=== PATIENT | male | born 1990 | race Caucasian/White ===

== ENCOUNTER 2020-01-05 19:34 | Inpatient (IN) | payer OTHER ==
[2020-01-05] MEDS ORDERED: NALOXONE 0.4 MG/ML 1 ML VIAL IV STA (19:38)
--- NOTE | 2020-01-05 19:42 | ED ---
General Adult HPI - General Source: patient, police, EMS, RN notes reviewed Mode of arrival: EMS Limitations: altered mental status, physical limitation <Olayinka Robins - Last Filed: 01/05/20 20:43> <Jigar Driver - Last Filed: 01/09/20 23:20> - General Chief complaint: Altered Mental Status Stated complaint: Unresponsive Time Seen by Provider: 01/05/20 19:38 - History of Present Illness Initial comments: Patient is an unresponsive 29-year-old male found it is car with the vehicle running. EMS was unable to provide further information about the patient. They did give Narcan twice without improvement of symptoms. Nasal trumpet was placed and patient did appear to reach for one time. Patient remains unresponsive at this time and unable to provide any information. No reported trauma. (Olayinka Melendez) - Related Data Home Medications Medication Instructions Recorded Confirmed Amitriptyline HCl [Elavil] 50 mg PO HS 01/05/20 01/05/20 Ammonium Lactate Lotion 1 applic TOPICAL BID PRN 01/05/20 01/05/20 [Lac-Hydrin 12% Lotion] Buprenorphine HCl/Naloxone HCl 0.5 film SL Q4H 01/05/20 01/05/20 [Suboxone 8 mg-2 mg Sl Film] Butalb/APAP/Caff 50-325-40Mg 1 tab PO Q12H PRN 01/05/20 01/05/20 [Fioricet 50-325-40] Lisdexamfetamine Dimesylate 40 mg PO DAILY 01/05/20 01/05/20 [Vyvanse] Naproxen [Naprosyn] 250 mg PO Q12H PRN 01/05/20 01/05/20 QUEtiapine [SEROquel] 100 mg PO HS 01/05/20 01/05/20 cloNIDine HCL [Catapres] 0.1 mg PO HS 01/05/20 01/05/20 Allergies Allergy/AdvReac Type Severity Reaction Status Date / Time No Known Allergies Allergy Verified 01/05/20 21:02 Review of Systems ROS Other: All systems not noted in ROS Statement are negative. Limitations: ROS unobtainable due to patients medical condition <Olayinka Robins - Last Filed: 01/05/20 20:43> ROS Other: All systems not noted in ROS Statement are negative. <Jigar Driver - Last Filed: 01/09/20 23:20> ROS Statement: Those systems with pertinent positive or pertinent negative responses have been documented in the HPI. General Exam Limitations: altered mental status, physical limitation General appearance: obtunded Head exam: Present: atraumatic, normocephalic Eye exam: Present: normal appearance, other (Pupils constricted) ENT exam: Present: normal oropharynx, other (Gag reflex not present) Neck exam: Present: normal inspection Respiratory exam: Present: normal lung sounds bilaterally, other (Snoring respirations) Cardiovascular Exam: Present: regular rate, normal rhythm GI/Abdominal exam: Present: soft. Absent: tenderness Extremities exam: Present: other (Track douglass left antecubital fossa) Expanded Neurological exam: Present: total aphasia Eye Response: (1) no response Motor Response: (1) no motor response Verbal Response: (1) no verbal response Psychiatric exam: Present: other (Nonverbal) Skin exam: Present: normal color <Olayinka Robins - Last Filed: 01/05/20 20:43> Course Vital Signs 01/05/20 01/05/20 01/05/20 19:35 19:41 19:45 Temperature 97 F L 97 F L Pulse Rate 82 82 Respiratory 9 L 9 L Rate Blood Pressure 119/82 119/65 114/82 O2 Sat by Pulse 97 97 97 Oximetry 01/05/20 01/05/20 01/05/20 19:50 19:54 19:55 Temperature Pulse Rate 82 Respiratory 12 9 L Rate Blood Pressure 114/82 184/140 O2 Sat by Pulse 97 100 Oximetry 01/05/20 01/05/20 01/05/20 20:00 20:06 20:23 Temperature Pulse Rate 78 85 82 Respiratory 16 12 16 Rate Blood Pressure 184/140 117/81 124/88 O2 Sat by Pulse 99 100 100 Oximetry 01/05/20 01/05/20 01/05/20 20:55 21:04 21:42 Temperature Pulse Rate 89 87 Respiratory 16 16 Rate Blood Pressure 118/82 116/80 109/76 O2 Sat by Pulse 100 100 Oximetry 01/05/20 01/05/20 22:00 22:06 Temperature 98 F Pulse Rate 81 87 Respiratory 16 Rate Blood Pressure 112/84 O2 Sat by Pulse 100 Oximetry EKG Findings - EKG Comments: EKG Findings:: Sinus rhythm at 82. IN 16. QRS 124. QT 420. QTc 490. [place]. Nonspecific intraventricular conduction delay. No acute ST change. <Olayinka Robins - Last Filed: 01/05/20 20:43> Procedures - Intubation Paralytic: Succinylcholine Mg Given: 120 Laryngoscope: Tee Size: 3 ET Tube Size: 8 Tube Secured Depth (cm): 23 Tube Secured Location: lips Tube Placement Confirmation: visualized tube passing through cords, equal breath sounds bilaterally, no breath sounds over epigastrium, confirmation by capnometry Patient Tolerated Procedure: well, no complications Intubation Complications: none <Olayinka Robins - Last Filed: 01/05/20 20:43> Medical Decision Making - Lab Data Result diagrams: 01/05/20 19:44 01/05/20 19:44 - Radiology Data Radiology results: image reviewed (Chest x-ray shows endotracheal tube present. No acute abnormality.) <Olayinka Robins - Last Filed: 01/05/20 20:43> - Lab Data Result diagrams: 01/06/20 04:29 01/06/20 04:29 - Radiology Data Radiology results: report reviewed (CT brain is negativ efor acute disaease), im age reviewed <Jigar Driver - Last Filed: 01/09/20 23:20> - Medical Decision Making 29 male to the ED found unresponsive, CKR, CT brain negative for acute disease, patient to ICU for monitoring and further hemodynamic monitoring and evaluation. (Jigar Driver) - Lab Data Lab Results 01/05/20 01/05/20 01/05/20 Range/Units 19:44 19:44 19:44 WBC 8.2 (3.8-10.6) k/uL RBC 4.66 (4.30-5.90) m/uL Hgb 15.0 (13.0-17.5) gm/dL Hct 43.6 (39.0-53.0) % MCV 93.6 (80.0-100.0) fL MCH 32.2 (25.0-35.0) pg MCHC 34.5 (31.0-37.0) g/dL RDW 12.6 (11.5-15.5) % Plt Count 175 (150-450) k/uL Neutrophils % 66 % Lymphocytes % 22 % Monocytes % 6 % Eosinophils % 5 % Basophils % 0 % Neutrophils # 5.4 (1.3-7.7) k/uL Lymphocytes # 1.8 (1.0-4.8) k/uL Monocytes # 0.5 (0-1.0) k/uL Eosinophils # 0.4 (0-0.7) k/uL Basophils # 0.0 (0-0.2) k/uL PT 12.1 H (9.0-12.0) sec INR 1.2 H (<1.2) APTT 27.5 (22.0-30.0) sec Sample Site ABG pH (7.35-7.45) ABG pCO2 (35-45) mmHg ABG pO2 (83-108) mmHg ABG HCO3 (21-25) mmol/L ABG Total CO2 (19-24) mmol/L ABG O2 Saturation (94-97) % ABG Base Excess mmol/L Sunny Test Carbon Monoxide, Quant (<10.0) % FiO2 % Sodium (137-145) mmol/L Potassium (3.5-5.1) mmol/L Chloride (98-107) mmol/L Carbon Dioxide (22-30) mmol/L Anion Gap mmol/L BUN (9-20) mg/dL Creatinine (0.66-1.25) mg/dL Est GFR (CKD-EPI)AfAm (>60 ml/min/1.73 sqM) Est GFR (CKD-EPI)NonAf (>60 ml/min/1.73 sqM) Glucose (74-99) mg/dL POC Glucose (mg/dL) (75-99) mg/dL POC Glu Drop Pit Worker ID Calcium (8.4-10.2) mg/dL Total Bilirubin (0.2-1.3) mg/dL AST (17-59) U/L ALT (4-49) U/L Alkaline Phosphatase (38-126) U/L Creatine Kinase (55-170) U/L Troponin I (0.000-0.034) ng/mL Total Protein (6.3-8.2) g/dL Albumin (3.5-5.0) g/dL Urine Color Yellow Urine Appearance Clear (Clear) Urine pH 6.5 (5.0-8.0) Ur Specific [place] 1.039 H (1.001-1.035) Urine Protein 1+ H (Negative) Urine Glucose (UA) Negative (Negative) Urine Ketones Trace H (Negative) Urine Blood Negative (Negative) Urine Nitrite Negative (Negative) Urine Bilirubin Negative (Negative) Urine Urobilinogen 3.0 (<2.0) mg/dL Ur Leukocyte Esterase Negative (Negative) Urine RBC 2 (0-5) /hpf Urine WBC 1 (0-5) /hpf Ur Squamous Epith Cells <1 (0-4) /hpf Urine Bacteria Rare H (None) /hpf Urine Mucus Many H (None) /hpf Urine Sperm Rare (None) /hpf Salicylates mg/dL Urine Opiates Screen Not Detected (NotDetected) Ur Oxycodone Screen Not Detected (NotDetected) Urine Methadone Screen Not Detected (NotDetected) Ur Propoxyphene Screen Not Detected (NotDetected) Ur Barbiturates Screen Detected H (NotDetected) U Tricyclic Antidepress Detected H (NotDetected) Ur Phencyclidine Scrn Not Detected (NotDetected) Ur Amphetamines Screen Detected H (NotDetected) U Methamphetamines Scrn Not Detected (NotDetected) U Benzodiazepines Scrn Detected H (NotDetected) Urine Cocaine Screen Detected H (NotDetected) U Marijuana (THC) Screen Detected H (NotDetected) Serum Alcohol mg/dL Acetone, Qual (Negative) 01/05/20 01/05/20 01/05/20 Range/Units 19:44 19:44 19:44 WBC (3.8-10.6) k/uL RBC (4.30-5.90) m/uL Hgb (13.0-17.5) gm/dL Hct (39.0-53.0) % MCV (80.0-100.0) fL MCH (25.0-35.0) pg MCHC (31.0-37.0) g/dL RDW (11.5-15.5) % Plt Count (150-450) k/uL Neutrophils % % Lymphocytes % % Monocytes % % Eosinophils % % Basophils % % Neutrophils # (1.3-7.7) k/uL Lymphocytes # (1.0-4.8) k/uL Monocytes # (0-1.0) k/uL Eosinophils # (0-0.7) k/uL Basophils # (0-0.2) k/uL PT (9.0-12.0) sec INR (<1.2) APTT (22.0-30.0) sec Sample Site ABG pH (7.35-7.45) ABG pCO2 (35-45) mmHg ABG pO2 (83-108) mmHg ABG HCO3 (21-25) mmol/L ABG Total CO2 (19-24) mmol/L ABG O2 Saturation (94-97) % ABG Base Excess mmol/L Sunny Test Carbon Monoxide, Quant 6.3 (<10.0) % FiO2 % Sodium 140 (137-145) mmol/L Potassium 3.2 L (3.5-5.1) mmol/L Chloride 108 H (98-107) mmol/L Carbon Dioxide 25 (22-30) mmol/L Anion Gap 7 mmol/L BUN 11 (9-20) mg/dL Creatinine 0.66 (0.66-1.25) mg/dL Est GFR (CKD-EPI)AfAm >90 (>60 ml/min/1.73 sqM) Est GFR (CKD-EPI)NonAf >90 (>60 ml/min/1.73 sqM) Glucose 96 (74-99) mg/dL POC Glucose (mg/dL) (75-99) mg/dL POC Glu Drop Pit Worker ID Calcium 9.1 (8.4-10.2) mg/dL Total Bilirubin 0.5 (0.2-1.3) mg/dL AST 23 (17-59) U/L ALT 20 (4-49) U/L Alkaline Phosphatase 63 (38-126) U/L Creatine Kinase 133 (55-170) U/L Troponin I <0.012 (0.000-0.034) ng/mL Total Protein 6.4 (6.3-8.2) g/dL Albumin 4.1 (3.5-5.0) g/dL Urine Color Urine Appearance (Clear) Urine pH (5.0-8.0) Ur Specific [place] (1.001-1.035) Urine Protein (Negative) Urine Glucose (UA) (Negative) Urine Ketones (Negative) Urine Blood (Negative) Urine Nitrite (Negative) Urine Bilirubin (Negative) Urine Urobilinogen (<2.0) mg/dL Ur Leukocyte Esterase (Negative) Urine RBC (0-5) /hpf Urine WBC (0-5) /hpf Ur Squamous Epith Cells (0-4) /hpf Urine Bacteria (None) /hpf Urine Mucus (None) /hpf Urine Sperm (None) /hpf Salicylates <1.0 mg/dL Urine Opiates Screen (NotDetected) Ur Oxycodone Screen (NotDetected) Urine Methadone Screen (NotDetected) Ur Propoxyphene Screen (NotDetected) Ur Barbiturates Screen (NotDetected) U Tricyclic Antidepress (NotDetected) Ur Phencyclidine Scrn (NotDetected) Ur Amphetamines Screen (NotDetected) U Methamphetamines Scrn (NotDetected) U Benzodiazepines Scrn (NotDetected) Urine Cocaine Screen (NotDetected) U Marijuana (THC) Screen (NotDetected) Serum Alcohol <10 mg/dL Acetone, Qual Negative (Negative) 01/05/20 01/05/20 Range/Units 19:45 20:28 WBC (3.8-10.6) k/uL RBC (4.30-5.90) m/uL Hgb (13.0-17.5) gm/dL Hct (39.0-53.0) % MCV (80.0-100.0) fL MCH (25.0-35.0) pg MCHC (31.0-37.0) g/dL RDW (11.5-15.5) % Plt Count (150-450) k/uL Neutrophils % % Lymphocytes % % Monocytes % % Eosinophils % % Basophils % % Neutrophils # (1.3-7.7) k/uL Lymphocytes # (1.0-4.8) k/uL Monocytes # (0-1.0) k/uL Eosinophils # (0-0.7) k/uL Basophils # (0-0.2) k/uL PT (9.0-12.0) sec INR (<1.2) APTT (22.0-30.0) sec Sample Site r rad ABG pH 7.35 (7.35-7.45) ABG pCO2 47 H (35-45) mmHg ABG pO2 368 H (83-108) mmHg ABG HCO3 26 H (21-25) mmol/L ABG Total CO2 27 H (19-24) mmol/L ABG O2 Saturation 99.8 H (94-97) % ABG Base Excess 0.3 mmol/L Sunny Test Yes Carbon Monoxide, Quant (<10.0) % FiO2 100 % Sodium (137-145) mmol/L Potassium (3.5-5.1) mmol/L Chloride (98-107) mmol/L Carbon Dioxide (22-30) mmol/L Anion Gap mmol/L BUN (9-20) mg/dL Creatinine (0.66-1.25) mg/dL Est GFR (CKD-EPI)AfAm (>60 ml/min/1.73 sqM) Est GFR (CKD-EPI)NonAf (>60 ml/min/1.73 sqM) Glucose (74-99) mg/dL POC Glucose (mg/dL) 108 H (75-99) mg/dL POC Glu Drop Pit Worker ID De La Paz, Camryn Calcium (8.4-10.2) mg/dL Total Bilirubin (0.2-1.3) mg/dL AST (17-59) U/L ALT (4-49) U/L Alkaline Phosphatase (38-126) U/L Creatine Kinase (55-170) U/L Troponin I (0.000-0.034) ng/mL Total Protein (6.3-8.2) g/dL Albumin (3.5-5.0) g/dL Urine Color Urine Appearance (Clear) Urine pH (5.0-8.0) Ur Specific [place] (1.001-1.035) Urine Protein (Negative) Urine Glucose (UA) (Negative) Urine Ketones (Negative) Urine Blood (Negative) Urine Nitrite (Negative) Urine Bilirubin (Negative) Urine Urobilinogen (<2.0) mg/dL Ur Leukocyte Esterase (Negative) Urine RBC (0-5) /hpf Urine WBC (0-5) /hpf Ur Squamous Epith Cells (0-4) /hpf Urine Bacteria (None) /hpf Urine Mucus (None) /hpf Urine Sperm (None) /hpf Salicylates mg/dL Urine Opiates Screen (NotDetected) Ur Oxycodone Screen (NotDetected) Urine Methadone Screen (NotDetected) Ur Propoxyphene Screen (NotDetected) Ur Barbiturates Screen (NotDetected) U Tricyclic Antidepress (NotDetected) Ur Phencyclidine Scrn (NotDetected) Ur Amphetamines Screen (NotDetected) U Methamphetamines Scrn (NotDetected) U Benzodiazepines Scrn (NotDetected) Urine Cocaine Screen (NotDetected) U Marijuana (THC) Screen (NotDetected) Serum Alcohol mg/dL Acetone, Qual (Negative) Critical Care Time Critical Care Time: Yes Total Critical Care Time: 33 <Olayinka Robins - Last Filed: 01/05/20 20:43> Disposition <Olayinka Robins - Last Filed: 01/05/20 20:43> Is patient prescribed a controlled substance at d/c from ED?: No <Jigar Driver - Last Filed: 01/09/20 23:20> Clinical Impression: Altered mental status, Drug overdose, Acute respiratory failure Disposition: ADMITTED IP TO THIS [facility] Condition: Serious
[2020-01-05] MEDS ORDERED: SUCCINYLCHOLINE CHLORIDE VIAL 200 MG/10 ML VIAL IV STA (19:43)
[2020-01-05] MEDS ORDERED: LORazepam 2 MG/ML INJ IV PRN ×2 (19:47)
[2020-01-05 19:48] LABS: Glucose,Whole Blood 108 mg/dL (75-99)
[2020-01-05 19:51] LABS: Basophils % (A) 0 %; Eosinophils # (A) 0.4 k/uL (0-0.7); Eosinophils % (A) 5 %; HCT 43.6 % (39.0-53.0); Lymphocytes # (A) 1.8 k/uL (1.0-4.8); Lymphocytes % (A) 22 %; MCH 32.2 pg (25.0-35.0); MCHC 34.5 g/dL (31.0-37.0); MCV 93.6 fL (80.0-100.0); Mean Platelet Volume 7.8; Monocytes # (A) 0.5 k/uL (0-1.0); Monocytes % (A) 6 %; Neutrophils # (A) 5.4 k/uL (1.3-7.7); Neutrophils % (A) 66 %; Platelet Count 175 k/uL (150-450); RBC 4.66 m/uL (4.30-5.90); RDW 12.6 % (11.5-15.5); WBC 8.2 k/uL (3.8-10.6)
[2020-01-05 20:00] LABS: INR 1.2 (<1.2); Partial Thromboplastin Time 27.5 sec (22.0-30.0); Prothrombin Time 12.1 sec (9.0-12.0)
[2020-01-05 20:03] LABS: ALT 20 U/L (4-49); AST 23 U/L (17-59); African American GFR (CKD) >90 (>60 ml/min/1.73 sqM); Albumin 4.1 g/dL (3.5-5.0); Alcohol <10 mg/dL; Alkaline Phosphatase 63 U/L (38-126); Anion Gap 7 mmol/L; Blood Urea Nitrogen 11 mg/dL (9-20); Calcium 9.1 mg/dL (8.4-10.2); Carbon Dioxide 25 mmol/L (22-30); Chloride 108 mmol/L (98-107); Creatine Kinase 133 U/L (55-170); Glucose 96 mg/dL (74-99); Non-African American GFR(CKD) >90 (>60 ml/min/1.73 sqM); Potassium 3.2 mmol/L (3.5-5.1); Salicylate <1.0 mg/dL; Sodium 140 mmol/L (137-145); Total Bilirubin 0.5 mg/dL (0.2-1.3); Total Protein 6.4 g/dL (6.3-8.2)
[2020-01-05] MEDS: PROPOFOL 1,000 MG in EMPTY BAG 1 BAG IV SCH ×2 (20:06→23:00)
[2020-01-05 20:32] LABS: ABG Base Excess 0.3 mmol/L; ABG HCO3 26 mmol/L (21-25); ABG Oxygen Saturation 99.8 % (94-97); ABG PCO2 47 mmHg (35-45); ABG PH 7.35 (7.35-7.45); ABG PO2 368 mmHg (83-108); ABG TCO2 27 mmol/L (19-24); Allen Test Performed? Yes
--- NOTE | 2020-01-05 20:35 | XR ---
EXAMINATION TYPE: XR chest 1V portable DATE OF EXAM: 01/05/2020 COMPARISON: Prior chest x-ray is unavailable HISTORY: Intubated TECHNIQUE: Single frontal view of the chest is obtained. FINDINGS: Endotracheal tube is overlying the tracheal air column, there is an NG tube in place with the distal tip not included on exam. Patient is rotated, heart size is prominent. No evident pneumoth orax or pleural effusion. Lung volumes are low, central vascularity and interstitium somewhat promine nt. IMPRESSION: Expiratory rotated exam. Follow-up as indicated.
[2020-01-05] MEDS ORDERED: POTASSIUM CHLORIDE 20 MEQ in WATER FOR INJECTION 1 100ML.BAG IVPB STA (20:54)
[2020-01-05] MEDS ORDERED: NALOXONE 0.4 MG/ML 1 ML VIAL IV PRN ×2 (21:02→21:06)
--- NOTE | 2020-01-05 21:03 | CT ---
EXAMINATION TYPE: CT brain wo con DATE OF EXAM: 01/05/2020 COMPARISON: None HISTORY: UNRESPONSIVE CT DLP: 1188.4 mGycm. Automated Exposure Control for Dose Reduction was Utilized. TECHNIQUE: CT scan of the head is performed without contrast. FINDINGS: There is no acute intracranial hemorrhage, mass effect, or midline shift identified. The ventricles and sulci are within normal limits in size. The globes are intact and the visualized sin uses are are markable for inflammatory change in the ethmoid air cells. IMPRESSION: No acute intracranial hemorrhage, mass effect, or midline shift is seen.
[2020-01-05] MEDS ORDERED: IPRATROPIUM-ALBUTEROL 3 ML NEB INHALATION PRN (21:06)
[2020-01-05 21:16] LABS: Appearance,Urine Clear (Clear); Bacteria,Urine Rare /hpf; Bilirubin,Urine Negative (Negative); Blood,Urine Negative (Negative); Color,Urine Yellow; Glucose,Urine (UA) Negative (Negative); Ketones,Urine Trace (Negative); Leukocyte Esterase,Urine Negative (Negative); Mucus,Urine Many /hpf; Nitrite,Urine Negative (Negative); PH, Urine 6.5 (5.0-8.0); Protein,Urine 1+ (Negative); RBC,Urine 2 /hpf (0-5); Specific Gravity,Urine 1.039 (1.001-1.035); Sperm,Urine Rare /hpf; Squamous Epithelial Cell,Urine <1 /hpf (0-4); WBC,Urine 1 /hpf (0-5)
[2020-01-05 21:23] LABS: Amphetamine Screen,Urine Detected (NotDetected); Barbiturate Screen,Urine Detected (NotDetected); Benzodiazepines Screen,Urine Detected (NotDetected); Cocaine Screen,Urine Detected (NotDetected); Methadone Screen, Urine Not Detected (NotDetected); Opiate Screen,Urine Not Detected (NotDetected); Oxycodone Screen, Urine Not Detected (NotDetected); Phencyclidine Screen,Urine Not Detected (NotDetected); Tricyclic Antidepressant,Urine Detected (NotDetected); Urn Cannabinoid Scrn Detected (NotDetected)
[2020-01-05 22:35] LABS: Glucose,Whole Blood 109 mg/dL (75-99)
[2020-01-05] MEDS: CHLORHEXIDINE GLUCONATE 15 ML CUP MUCOUS MEM SCH (23:03)
[2020-01-05 23:46] LABS: Acetaminophen <10.0 ug/mL; Potassium 3.9 mmol/L (3.5-5.1); Salicylate <1.0 mg/dL
[2020-01-06] MEDS: PROPOFOL 1,000 MG in EMPTY BAG 1 BAG IV SCH ×3 (02:25→09:10)
[2020-01-06 04:39] LABS: Basophils # (A) 0.1 k/uL (0-0.2); Basophils % (A) 1 %; Eosinophils # (A) 0.4 k/uL (0-0.7); Eosinophils % (A) 6 %; HCT 43.4 % (39.0-53.0); HGB 14.7 gm/dL (13.0-17.5); Lymphocytes % (A) 30 %; MCH 31.4 pg (25.0-35.0); MCV 92.5 fL (80.0-100.0); Mean Platelet Volume 7.6; Monocytes # (A) 0.5 k/uL (0-1.0); Monocytes % (A) 7 %; Neutrophils # (A) 3.6 k/uL (1.3-7.7); Neutrophils % (A) 54 %; Platelet Count 195 k/uL (150-450); RBC 4.69 m/uL (4.30-5.90); RDW 12.7 % (11.5-15.5); WBC 6.7 k/uL (3.8-10.6)
[2020-01-06 04:52] LABS: ALT 19 U/L (4-49); AST 21 U/L (17-59); African American GFR (CKD) >90 (>60 ml/min/1.73 sqM); Albumin 3.8 g/dL (3.5-5.0); Alkaline Phosphatase 71 U/L (38-126); Anion Gap 6 mmol/L; Blood Urea Nitrogen 11 mg/dL (9-20); Calcium 9.1 mg/dL (8.4-10.2); Carbon Dioxide 26 mmol/L (22-30); Chloride 107 mmol/L (98-107); Glucose 100 mg/dL (74-99); Magnesium 2.1 mg/dL (1.6-2.3); Non-African American GFR(CKD) >90 (>60 ml/min/1.73 sqM); Phosphorus 3.4 mg/dL (2.5-4.5); Potassium 3.6 mmol/L (3.5-5.1); Sodium 139 mmol/L (137-145); Total Bilirubin 0.6 mg/dL (0.2-1.3); Total Protein 6.1 g/dL (6.3-8.2)
[2020-01-06 05:17] LABS: ABG Base Excess 2.8 mmol/L; ABG HCO3 27 mmol/L (21-25); ABG Oxygen Saturation 98.1 % (94-97); ABG PCO2 43 mmHg (35-45); ABG PH 7.41 (7.35-7.45); ABG PO2 96 mmHg (83-108); ABG TCO2 29 mmol/L (19-24); Allen Test Performed? Yes
[2020-01-06] MEDS ORDERED: Potassium Replacement Protocol 1 EACH MISC MISCELLANE PRN (05:45)
[2020-01-06] MEDS: POTASSIUM CHLORIDE 10 MEQ in WATER FOR INJECTION 1 100ML.BAG IVPB SCH ×2 (06:16→09:40)
--- NOTE | 2020-01-06 07:25 | XR ---
EXAMINATION TYPE: XR chest 1V portable DATE OF EXAM: 01/06/2020 COMPARISON: 01/05/2020 HISTORY: SOB, Follow Up FINDINGS: Indwelling tubes and catheters are unchanged. Focal infiltrate or pneumothorax. Stable appearance of the cardio-mediastinal structures at this time. No pleural effusion identified. IMPRESSION: 1. Stable portable chest. Clinical correlation and follow up until resolution is recommended.
[2020-01-06 08:11] VITALS: TEMP 97.8
[2020-01-06] MEDS ORDERED: PANTOPRAZOLE 40 MG/10 ML VIAL IV SCH (09:00)
[2020-01-06] MEDS ORDERED: HEPARIN SODIUM,PORCINE 5,000 UNIT/ML 1 ML VIAL SQ SCH (09:00)
[2020-01-06] MEDS: CHLORHEXIDINE GLUCONATE 15 ML CUP MUCOUS MEM SCH (09:40)
--- NOTE | 2020-01-06 11:27 | P.CNPUL ---
History of Present Illness Consult date: 01/06/20 Chief complaint: POLY substance abuse History of present illness: This 29-year-old male patient was found in his car with a vehicle running. [place] ice got to the scene. EMS was called as the patient was found to be unresponsive. He was given Narcan with limited response and following that the patient was transferred to the hospital where he was intubated and placed on a mechanical ventilator for airway protection. The patient was acting unusual according to his father who saw him few hours prior to that. The father however does not know much about his son and does not know a lot about his habits and patterns and medical issues. In summary, the patient was intubated and placed on a mechanical ventilator and following that he was transferred to the intensive care unit. He required sedation for increased agitation. His urine drug screen was positive for benzodiazepines, cocaine, marijuana, tricyclics, barbiturates and amphetamines. Overnight, the patient was kept on propofol at 50 g per KG per minute. Urine output is normal to 50 mL an hour. The patient received normal saline today to 75 mL an hour. Currently is on a mechanical ventilator within assist-control mode rate of 16 with a tidal volume of 500 and FiO2 of 40% with a PEEP of 5. His pH is at 7.41 with a pCO2 of 43 and pO2 of 96. The EKG showing no acute abnormalities. No neck stiffness. No seizure activity has been noted. No body jerks. No aspiration. Chest x-ray is within normal limits and ET tube is in a good location. The cardiac enzymes are neg ative. The rest of the blood work is all within normal limits. Earlier this morning, the patient was given a sedation holiday. He woke up appropriately. He was getting progressively more restless and was biting into. Nevertheless, he was moving all 4 extremities and he was following commands and seemed to be appropriate and alert. Based on that, he was given a refill of his breathing trial and following that the patient was extubated. Review of Systems ROS unobtainable: due to endotracheal tube Past Medical History Additional Past Medical History / Comment(s): Father unaware of pt medical history History of Any Multi-Drug Resistant Organisms: None Reported Past Surgical History: No Surgical Hx Reported Past Anesthesia/Blood Transfusion Reactions: No Reported Reaction Smoking Status: Current every day smoker Medications and Allergies Home Medications Medication Instructions Recorded Confirmed Type Amitriptyline HCl [Elavil] 50 mg PO HS 01/05/20 01/05/20 History Ammonium Lactate Lotion 1 applic TOPICAL BID PRN 01/05/20 01/05/20 History [Lac-Hydrin 12% Lotion] Buprenorphine HCl/Naloxone HCl 0.5 film SL Q4H 01/05/20 01/05/20 History [Suboxone 8 mg-2 mg Sl Film] Butalb/APAP/Caff 50-325-40Mg 1 tab PO Q12H PRN 01/05/20 01/05/20 History [Fioricet 50-325-40] Lisdexamfetamine Dimesylate 40 mg PO DAILY 01/05/20 01/05/20 History [Vyvanse] Naproxen [Naprosyn] 250 mg PO Q12H PRN 01/05/20 01/05/20 History QUEtiapine [SEROquel] 100 mg PO HS 01/05/20 01/05/20 History cloNIDine HCL [Catapres] 0.1 mg PO HS 01/05/20 01/05/20 History Allergies Allergy/AdvReac Type Severity Reaction Status Date / Time No Known Allergies Allergy Verified 01/05/20 21:02 Physical Exam Vitals: Vital Signs Temp Pulse Pulse Resp BP BP Pulse Ox 01/06/20 07:00 84 16 108/78 98 01/06/20 06:30 82 16 121/90 98 01/06/20 06:00 79 16 111/84 100 01/06/20 05:30 84 16 107/97 99 01/06/20 05:00 82 16 119/79 99 01/06/20 04:30 83 16 103/77 98 01/06/20 04:00 97.5 F L 82 16 104/78 99 01/06/20 03:30 84 16 121/81 98 01/06/20 03:00 81 16 121/81 99 01/06/20 02:30 85 16 98 01/06/20 02:00 84 16 101/77 98 01/06/20 01:31 82 16 99 01/06/20 01:00 85 16 101/77 98 01/06/20 00:00 83 16 111/77 96 01/05/20 23:00 97.6 F 84 16 108/78 98 01/05/20 22:06 98 F 87 16 112/84 100 01/05/20 22:00 81 01/05/20 21:42 109/76 01/05/20 21:04 87 16 116/80 100 01/05/20 20:55 89 16 118/82 100 01/05/20 20:23 82 16 124/88 100 01/05/20 20:06 85 12 117/81 100 01/05/20 20:00 78 16 184/140 99 01/05/20 19:55 9 L 01/05/20 19:54 82 12 184/140 100 01/05/20 19:50 114/82 97 01/05/20 19:45 114/82 97 01/05/20 19:41 97 F L 82 9 L 119/65 97 01/05/20 19:35 97 F L 82 9 L 119/82 97 Intake and Output 01/05/20 01/06/20 01/06/20 22:59 06:59 14:59 Intake Total 43.544 573.130 100 Output Total 430 50 Balance 43.544 143.130 50 Intake: IV 375 100 0.9 375 Potassium Chloride 10 meq 100 In Water For Injection 1 100ml.bag @ 100 mls/hr IVPB Q1H YOSELIN Rx#: [id number] Intake, IV Titration 43.544 198.130 Amount Propofol 1,000 mg In 43.544 198.130 Empty Bag 1 bag @ Titrate IV .Q0M [facility] Rx#: [id number] Output: Urine 430 50 Other: Voiding Method Indwelling Catheter Weight 90.718 kg 98 kg The patient appeared well nourished and normally developed. Vital signs as do cumented. He was intubated and the patient subsequently the patient was extubated to nasal cannula after having a sedation holiday and breathing spontaneously breathing trial. Head exam is unremarkable. No scleral icterus or corneal arcus noted. Neck is without jugular venous distension, thyromegaly, or carotid bruits. Carotid upstrokes are brisk bilaterally. Lungs are clear to auscultation and percussion. Cardiac exam reveals the PMI to be normally sized and situated. Rhythm is regular. First and second heart sounds normal. No murmurs, rubs or gallops. Abdominal exam reveals normal bowel sounds, no masses, no organomegaly and no aortic enlargement. Extremities are nonedematous and both femoral and pedal pulses are normal.Examination of the skin revealed no evidence of significant rashes, suspicious appearing nevi or other concerning lesions. Neurologically the patient is still arousing from sedation. He a is moving all 4 extremities. No neck stiffness. Pupils are equal and reactive to light. No nystagmus. No clonus. No Babinski. Results - Laboratory Findings CBC and BMP: 01/06/20 04:29 01/06/20 04:29 ABG ABG pH 7.41 (7.35-7.45) 01/06/20 05:17 ABG pCO2 43 mmHg (35-45) 01/06/20 05:17 ABG pO2 96 mmHg (83-108) 01/06/20 05:17 ABG O2 Saturation 98.1 % (94-97) H 01/06/20 05:17 PT/INR, D-dimer PT 12.1 sec (9.0-12.0) H 01/05/20 19:44 INR 1.2 (<1.2) H 01/05/20 19:44 Abnormal lab findings: Abnormal Labs 01/05/20 01/05/20 01/05/20 19:44 19:44 19:44 PT 12.1 H INR 1.2 H ABG pCO2 ABG pO2 ABG HCO3 ABG Total CO2 ABG O2 Saturation Potassium 3.2 L Chloride 108 H Creatinine Glucose POC Glucose (mg/dL) Total Protein Ur Specific [place] 1.039 H Urine Protein 1+ H Urine Ketones Trace H Urine Bacteria Rare H Urine Mucus Many H Ur Barbiturates Screen Detected H U Tricyclic Antidepress Detected H Ur Amphetamines Screen Detected H U Benzodiazepines Scrn Detected H Urine Cocaine Screen Detected H U Marijuana (THC) Screen Detected H 01/05/20 01/05/20 01/05/20 19:45 20:28 22:32 PT INR ABG pCO2 47 H ABG pO2 368 H ABG HCO3 26 H ABG Total CO2 27 H ABG O2 Saturation 99.8 H Potassium Chloride Creatinine Glucose POC Glucose (mg/dL) 108 H 109 H Total Protein Ur Specific [place] Urine Protein Urine Ketones Urine Bacteria Urine Mucus Ur Barbiturates Screen U Tricyclic Antidepress Ur Amphetamines Screen U Benzodiazepines Scrn Urine Cocaine Screen U Marijuana (THC) Screen 01/06/20 01/06/20 04:29 05:17 PT INR ABG pCO2 ABG pO2 ABG HCO3 27 H ABG Total CO2 29 H ABG O2 Saturation 98.1 H Potassium Chloride Creatinine 0.60 L Glucose 100 H POC Glucose (mg/dL) Total Protein 6.1 L Ur Specific [place] Urine Protein Urine Ketones Urine Bacteria Urine Mucus Ur Barbiturates Screen U Tricyclic Antidepress Ur Amphetamines Screen U Benzodiazepines Scrn Urine Cocaine Screen U Marijuana (THC) Screen - Diagnostic Findings Chest x-ray: image reviewed Assessment and Plan Plan: 1 altered mental status secondary to polysubstance abuse 2 acute respiratory failure, the patient was not hypoxic. Unsure if the patient was hypercapnic. The patient was intubated for airway protection as the patient was felt that he was unable to protect his airway in the emergency department. As such she was intubated and placed on a mechanical ventilator overnight. 3 suspect psychiatric history as the patient seems to be on a combination of medication including Seroquel on outpatient basis. The patient will need a psych evaluation. 4 suspect opiate dependence as the patient is also backs on outpatient basis 5 suspect depression as the patient is on Elavil on outpatient basis. Plan Patient is extubated Provide diet Psychiatric evaluation IV fluids We'll continue to follow. We'll try to gather some more information regarding his current presentation
[2020-01-06 13:23] VITALS: BP 123/83; PULSE 79; RESP 8
--- NOTE | 2020-01-06 13:44 | P.CN ---
Psychiatric Consult - . Consult date: 01/06/20 Consult:: IDENTIFYING DATA: 29-year-old single male admitted to the ICU for management of acute overdose. Apparently the EMS found him in his car with the motor running. He did not respond to administration of 2 doses of Narcan. The asset protection professional consult to psychiatry to evaluate whether the overdose was intentional. HISTORY OF PRESENT ILLNESS: I reviewed the medical record and interviewed the patient. When I initially arrived on the ICU this morning he was intubated and unresponsive. The unit subsequently extubated him. Immediately after extubation he demanded to be discharge. He denied that the overdose was a suicide attempt. I interviewed him and his girlfriend was also at the bedside. He stated that he did not overdose intentionally. He admitted to use of drugs including cocaine, Xanax, Lyrica, Suboxone and Vyvanse. He also talked about receiving prescriptions of butalbital from a provider for intractable headaches he developed after an overdose from heroin. He alleged that he went to visit his father where they were using cocaine. He obtained some Xanax from his father and alleged that he made an error and "took to many doses". He admits that he took Xanax to "get high"; denied that he took as an intent to end his life. He denied history of suicide attempts or gestures. He has had prior overdose when he is using heroin IV. He alleged that he uses heroin intermittently but much less often since she completed a 12 month substance abuse treatment program through [facility] in [place]. He is currently prescribed 24 mg of Suboxone daily for his opiate use disorder. He alleges a history of ADHD for which she is prescribed Vyvanse 70 mg daily. He denied feeling depressed, hopeless or helpless. He denied psychotic symptoms such as auditory, visual or olfactory hallucinations, ideas reference, thought insertion, thought broadcasting or thought control. He admits to using marijuana and benzodiazepines. His UDS was positive for barbiturates, tricyclic antidepressants, amphetamines, benzodiazepines, cocaine and marijuana. His UDS was negative. PAST PSYCHIATRIC HISTORY: He denied psychiatric hospitalizations. He denied a history of psychiatri c treatment. He has met with counselors intermittently since he was an adolescent. PAST MEDICAL HISTORY: He complained chronic headaches which is prescribed Fiorinal. He denied other chronic medical conditions. ALLERGIES: NO KNOWN DRUG ALLERGIES SUBSTANCE USE HISTORY: Wilian has a long history of substance use and substance use problems beginning in adolescence. He began abusing oral point medications and transition to heroin about 8 years ago. He was injecting heroin until he entered the substance abuse treatment program. His history of use of heroin, or opioid pain medications, barbiturates, benzodiazepines, cocaine, methamphetamine, and marijuana. He denied problems with use of alcohol. FAMILY PSYCHIATRIC/SUBSTANCE USE HISTORY: His father history of cocaine use disorder SOCIAL HISTORY: He is single and has one child out of wedlock. 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 MENTAL STATUS EXAM: He presented as a thin and irritable 29-year-old male who was resting company in bed. He made eye contact and attended the interview. He had no distinguishing features or prominent physical abnormalities. He has a impatient facial expression. He was alert and oriented to person, place and time. He showed no abnormality of psychomotor activity. Her speech was spontaneous and consistent with his mood. His affect was dysphoric with a mixture of anxiety and irritability. He denied suicidal ideation and wishes. He denied homicidal ideation. He denied feeling hopeless, helpless or worthless. He did not express ideas reference, paranoid ideation or delusions. His thinking was concrete but his associations were coherent, logical and goal directed. He denied hallucinations and did not appear to be responding to internal stimuli. IMPRESSIONS: 29-year-old single male with long history of substance use and substance use problems. He presented to [facility] unresponsive following an unintentional overdose of multiple drugs including cocaine, benzodiazepines, marijuana and opiates. He denied that the overdose was unintentional and denied suicidal ideation, intent or plan. He denied feeling depressed or having thoughts of or suicide. He denied history of suicide attempts or gestures. There is no indication for inpatient psychiatric treatment at this time. DIAGNOSIS: A benzodiazepine overdose, cocaine use disorder severe, opiate use disorder severe, benzodiazepine use disorder severe, barbiturate use disorder, cannabis use disorder RECOMMENDATION: Discontinue one-to-one. There is no indication for transfer to psychiatric unit. Refer for outpatient substance abuse treatment. Psychiatrist will sign off on the case. Thank you for the consult. 01/06/20 13:29 01/06/20 13:44
--- NOTE | 2020-01-06 22:55 | P.HPIM ---
History of Present Illness H&P Date: 01/06/20 Chief Complaint: Acute drug overdose. Patient is a 29-year-old male with a known history of polysubstance abuse, anxiety depression and bipolar disorder Was found in his car with vehicle running. Police on him at the scene. EMS was called and patient was found to be unresponsive. He was given Narcan at the scene and was transferred to ER. Patient was placed on mechanical ventilator for airway protection while in the ER. Initial history was taken from his father but he does not know much about his medical history. Patient apparently has some psychiatric illness and is medications. Patient otherwise denied any recent illnesses. No fever no chills. No nausea vomiting abdominal pain or diarrhea. UDS is positive for Positive for barbiturates, tricyclic antidepressants, amphetamines, benzodiazepines, cocaine and marijuana. Laboratory data showed WBC 8.2, hemoglobin 15.0, platelets 175 INR 1.2 Sodium 140, potassium 3.1 chloride 108 Liver enzymes are not elevated Troponin x1- UA negative for infection Chest x-ray showed stable findings. CT head showed no acute intracranial process. EKG showed normal sinus rhythm. Review of Systems Constitutional: Patient denies any fever or chills . No generalized weakness or weight loss. Abdomen: Patient denied nausea vomiting and diarrhea and abdominal pain. Cardiovascular: Patient denies any chest pain or short of breath no palpitations. Respiratory: patient denied any cough is from production. No shortness of breath Neurologic: Patient denied any numbness or tingling headache. Complete review of systems could not be obtained from the patient. Past Medical History Additional Past Medical History / Comment(s): Father unaware of pt medical history History of Any Multi-Drug Resistant Organisms: None Reported Past Surgical History: No Surgical Hx Reported Past Anesthesia/Blood Transfusion Reactions: No Reported Reaction Smoking Status: Current every day smoker Medications and Allergies Home Medications Medication Instructions Recorded Confirmed Type Amitriptyline HCl [Elavil] 50 mg PO HS 01/05/20 01/05/20 History Ammonium Lactate Lotion 1 applic TOPICAL BID PRN 01/05/20 01/05/20 History [Lac-Hydrin 12% Lotion] Buprenorphine HCl/Naloxone HCl 0.5 film SL Q4H 01/05/20 01/05/20 History [Suboxone 8 mg-2 mg Sl Film] Butalb/APAP/Caff 50-325-40Mg 1 tab PO Q12H PRN 01/05/20 01/05/20 History [Fioricet 50-325-40] Lisdexamfetamine Dimesylate 40 mg PO DAILY 01/05/20 01/05/20 History [Vyvanse] Naproxen [Naprosyn] 250 mg PO Q12H PRN 01/05/20 01/05/20 History QUEtiapine [SEROquel] 100 mg PO HS 01/05/20 01/05/20 History cloNIDine HCL [Catapres] 0.1 mg PO HS 01/05/20 01/05/20 History Allergies Allergy/AdvReac Type Severity Reaction Status Date / Time No Known Allergies Allergy Verified 01/05/20 21:02 Physical Exam Vitals: Vital Signs Temp Pulse Pulse Resp BP BP Pulse Ox 01/06/20 10:00 82 16 104/76 98 01/06/20 09:30 80 16 108/86 98 01/06/20 09:00 85 16 112/88 98 01/06/20 08:30 84 16 119/94 98 01/06/20 08:00 97.8 F 83 16 119/91 98 01/06/20 07:30 85 16 113/91 99 01/06/20 07:00 84 16 108/78 98 01/06/20 06:30 82 16 121/90 98 01/06/20 06:00 79 16 111/84 100 01/06/20 05:30 84 16 107/97 99 01/06/20 05:00 82 16 119/79 99 01/06/20 04:30 83 16 103/77 98 01/06/20 04:00 97.5 F L 82 16 104/78 99 01/06/20 03:30 84 16 121/81 98 01/06/20 03:00 81 16 121/81 99 01/06/20 02:30 85 16 98 01/06/20 02:00 84 16 101/77 98 01/06/20 01:31 82 16 99 01/06/20 01:00 85 16 101/77 98 01/06/20 00:00 83 16 111/77 96 01/05/20 23:00 97.6 F 84 16 108/78 98 01/05/20 22:06 98 F 87 16 112/84 100 01/05/20 22:00 81 01/05/20 21:42 109/76 01/05/20 21:04 87 16 116/80 100 01/05/20 20:55 89 16 118/82 100 01/05/20 20:23 82 16 124/88 100 01/05/20 20:06 85 12 117/81 100 01/05/20 20:00 78 16 184/140 99 01/05/20 19:55 9 L 01/05/20 19:54 82 12 184/140 100 01/05/20 19:50 114/82 97 01/05/20 19:45 114/82 97 01/05/20 19:41 97 F L 82 9 L 119/65 97 01/05/20 19:35 97 F L 82 9 L 119/82 97 Intake and Output 01/05/20 01/06/20 01/06/20 22:59 06:59 14:59 Intake Total 43.544 573.130 424.323 Output Total 430 190 Balance 43.544 143.130 234.323 Intake: IV 375 325 0.9 375 225 Potassium Chloride 10 meq 100 In Water For Injection 1 100ml.bag @ 100 mls/hr IVPB Q1H YOSELIN Rx#: [id number] Intake, IV Titration 43.544 198.130 99.323 Amount Propofol 1,000 mg In 43.544 198.130 99.323 Empty Bag 1 bag @ Titrate IV .Q0M YOSELIN Rx#: [id number] Output: Urine 430 190 Other: Voiding Method Indwelling Catheter Indwelling Catheter Weight 90.718 kg 98 kg PHYSICAL EXAMINATION: Patient is lying in the bed comfortably, no acute distress, awake alert and oriented.. HEENT: Normocephalic. Neck is supple. Pupils reactive. Nostrils clear. Oral cavity is moist. Ears reveal no drainage. Neck reveals no JVD, carotid bruits, or thyromegaly. CHEST EXAMINATION: Trachea is central. Symmetrical expansion. Lung humphries clear to auscultation and percussion. CARDIAC: Normal S1, S2 with no gallops. No murmurs ABDOMEN: Soft. Bowel sounds normal. No organomegaly. No abdominal bruits. Extremities: reveal no edema. No clubbing or cyanosis Neurologically awake, alert, oriented x3 with well-coordinated movements. No focal deficits noted Skin: No rash or skin lesions. Psychiatric: Coperative. Nonsuicidal. . Anxious and agitated. Musculoskeletal: No joint swelling or deformity. Normal range of motion. Results CBC & Chem 7: 01/06/20 04:29 01/06/20 04:29 Labs: Abnormal Lab Results - Last 24 Hours (Table) 01/05/20 01/05/20 01/05/20 Range/Units 19:44 19:44 19:44 PT 12.1 H (9.0-12.0) sec INR 1.2 H (<1.2) ABG pCO2 (35-45) mmHg ABG pO2 (83-108) mmHg ABG HCO3 (21-25) mmol/L ABG Total CO2 (19-24) mmol/L ABG O2 Saturation (94-97) % Potassium 3.2 L (3.5-5.1) mmol/L Chloride 108 H (98-107) mmol/L Creatinine (0.66-1.25) mg/dL Glucose (74-99) mg/dL POC Glucose (mg/dL) (75-99) mg/dL Total Protein (6.3-8.2) g/dL Ur Specific Sharon 1.039 H (1.001-1.035) Urine Protein 1+ H (Negative) Urine Ketones Trace H (Negative) Urine Bacteria Rare H (None) /hpf Urine Mucus Many H (None) /hpf Ur Barbiturates Screen Detected H (NotDetected) U Tricyclic Antidepress Detected H (NotDetected) Ur Amphetamines Screen Detected H (NotDetected) U Benzodiazepines Scrn Detected H (NotDetected) Urine Cocaine Screen Detected H (NotDetected) U Marijuana (THC) Screen Detected H (NotDetected) 01/05/20 01/05/20 01/05/20 Range/Units 19:45 20:28 22:32 PT (9.0-12.0) sec INR (<1.2) ABG pCO2 47 H (35-45) mmHg ABG pO2 368 H (83-108) mmHg ABG HCO3 26 H (21-25) mmol/L ABG Total CO2 27 H (19-24) mmol/L ABG O2 Saturation 99.8 H (94-97) % Potassium (3.5-5.1) mmol/L Chloride (98-107) mmol/L Creatinine (0.66-1.25) mg/dL Glucose (74-99) mg/dL POC Glucose (mg/dL) 108 H 109 H (75-99) mg/dL Total Protein (6.3-8.2) g/dL Ur Specific Sharon (1.001-1.035) Urine Protein (Negative) Urine Ketones (Negative) Urine Bacteria (None) /hpf Urine Mucus (None) /hpf Ur Barbiturates Screen (NotDetected) U Tricyclic Antidepress (NotDetected) Ur Amphetamines Screen (NotDetected) U Benzodiazepines Scrn (NotDetected) Urine Cocaine Screen (NotDetected) U Marijuana (THC) Screen (NotDetected) 01/06/20 01/06/20 Range/Units 04:29 05:17 PT (9.0-12.0) sec INR (<1.2) ABG pCO2 (35-45) mmHg ABG pO2 (83-108) mmHg ABG HCO3 27 H (21-25) mmol/L ABG Total CO2 29 H (19-24) mmol/L ABG O2 Saturation 98.1 H (94-97) % Potassium (3.5-5.1) mmol/L Chloride (98-107) mmol/L Creatinine 0.60 L (0.66-1.25) mg/dL Glucose 100 H (74-99) mg/dL POC Glucose (mg/dL) (75-99) mg/dL Total Protein 6.1 L (6.3-8.2) g/dL Ur Specific Sharon (1.001-1.035) Urine Protein (Negative) Urine Ketones (Negative) Urine Bacteria (None) /hpf Urine Mucus (None) /hpf Ur Barbiturates Screen (NotDetected) U Tricyclic Antidepress (NotDetected) Ur Amphetamines Screen (NotDetected) U Benzodiazepines Scrn (NotDetected) Urine Cocaine Screen (NotDetected) U Marijuana (THC) Screen (NotDetected) Microbiology - Last 24 Hours (Table) 01/05/20 19:44 Gram Stain - Preliminary Sputum Sputum Culture - Preliminary Thrombosis Risk Factor Assmnt - DVT/VTE Prophylaxis DVT/VTE Prophylaxis: Low risk, early ambulation encouraged - Choose All That Apply Any of the Below Risk Factors Present?: Yes Each Factor Represents 1 point: Obesity (BMI >25) Thrombosis Risk Factor Assessment Total Risk Factor Score: 1 Thrombosis Risk Factor Assessment Level: Low Risk Assessment and Plan Assessment: Altered mental status secondary to acute polysubstance abuse Acute respiratory failure status post mechanical ventilation for airway protection. Currently extubated History of underlying psychiatric illness and is on medications. Hypokalemia DVT prophylaxis with early ambulation Plan: Patient will be continued on IV hydration. Monitor for withdrawal symptoms. Currently being monitored in the ICU. Patient is extubated. Psychiatry has seen the patient and recommended no inpatient psychiatric admission. Continue to follow closely. Anticipate discharge in the next 24 hours with more clinical improvement.. Time with Patient: Greater than 30
== END 2020-01-06 13:20 | disposition left against medical advice (07) | DRG 917 ==
LOC: EC 19:34 → 2SICU 21:03
PROVIDERS: ADMIT Hospitalist; ATTEND Hospitalist
PROC: 0BH17EZ Insertion of Endotracheal Airway into Trachea, Via Natural or Artificial Opening (ICD-10-PCS; principal; 2020-01-06)
PROC: 5A1935Z Respiratory Ventilation, Less than 24 Consecutive Hours (ICD-10-PCS; principal; 2020-01-06)
DX: T50.901A Poisoning by unspecified drugs, medicaments and biological substances, accidental (unintentional), initial encounter (principal); J96.00 Acute respiratory failure, unspecified whether with hypoxia or hypercapnia; F31.9 Bipolar disorder, unspecified; F17.200 Nicotine dependence, unspecified, uncomplicated; E87.6 Hypokalemia; Z11.59 Encounter for screening for other viral diseases
CPT/HCPCS: 31500; 36415; 36600; 70450; 71045; 80053; 80306; 80320; 80329; 81001; 82009; 82375; 82550; 82805; 83520; 83735; 84100; 84132; 84484; 85025; 85610; 85730; 87070; 87205; 93005; 94003; 96365; 96374; 96375; 99291